=== PATIENT | male | born 1935 | race Caucasian/White ===

== ENCOUNTER 2017-02-26 11:14 | Inpatient (IN) | payer MEDICARE, OTHER ==
[~2017-02-26] VITALS: Ht 172.7 cm; Wt 76.2 kg
[2017-02-26] MEDS ORDERED: ACETAMINOPHEN EXTRA STRENGTH 500 MG TABLET ONE ×2 (11:27→11:29)
[2017-02-26] MEDS ORDERED: CEFTRIAXONE SODIUM 1 GM ONE (11:29)
[2017-02-26] MEDS ORDERED: SODIUM CHLORIDE 0.9% 1000ML 3,000 ML IV ONE (11:29)
[2017-02-26 11:53] LABS: BASOPHILS % (AUTO) 0.3 % (0.0-5.0); EOSINOPHILS % (AUTO) 0.1 % (0.0-8.0); HEMATOCRIT 35.9 % (42-54); LYMPHOCYTES % (AUTO) 7.8 % (21.0-51.0); MEAN CORPUSCULAR HEMOGLOBIN 30.2 pg (27.0-33.0); MEAN CORPUSCULAR HGB CONC 34.5 g/dL (32.0-36.0); MEAN CORPUSCULAR VOLUME 87.5 fL (79-99); MONOCYTES % (AUTO) 9.9 % (3.0-13.0); NEUTROPHILS % (AUTO) 81.9 % (40.0-77.0); PLATELET COUNT (AUTO) 257 K/uL (130-400); RED CELL DISTRIBUTION WIDTH 14.3 % (11.0-15.5); WHITE BLOOD COUNT (AUTO) 13.2 K/uL (4.8-10.8)
[2017-02-26] MEDS ORDERED: IPRATROPIUM/ALBUTEROL SULFATE 3 ML SOLUTION IH ONE (12:04)
[2017-02-26 12:47] LABS: INR 1.03 (0.85-1.15); PARTIAL THROMBOPLASTIN TIME 39.1 SEC (26.3-35.5); PROTHROMBIN TIME 10.8 SEC (9.6-11.6)
[2017-02-26 13:00] LABS: ALANINE AMINOTRANSFERASE 39 U/L (12-78); ALBUMIN 3.1 g/dL (3.5-5.0); ASPARTATE AMINOTRANSFERASE 34 U/L (10-37); BILIRUBIN,TOTAL 0.8 mg/dL (0.2-1.0); CARBON DIOXIDE 27 mmol/L (21-32); CHLORIDE 100 mmol/L (101-111); CREATINE KINASE MB < 0.5 ng/mL (0.5-3.6); CREATINE KINASE, TOTAL 166 U/L (21-232); CREATININE 1.1 mg/dL (0.5-1.5); GLOMERULAR FILTR. RATE CALC 68 mL/min (>60); GLUCOSE,RANDOM 107 mg/dL (70-105); MYOGLOBIN 108 ng/mL (10-92); SODIUM SERUM 135 mmol/L (136-145); TOTAL PROTEIN, SERUM 7.3 g/dL (6.0-8.3); TROPONIN I < 0.04 ng/mL (0.00-0.06); UREA NITROGEN, BLOOD 11 mg/dL (7-18)
[2017-02-26] MEDS ORDERED: SODIUM CHLORIDE 0.9% 1000ML 1,000 ML IV ONE (13:58)
[2017-02-26] MEDS ORDERED: LEVOFLOXACIN 500 MG/D5W 100 ML 100 ML ONE (13:59)
[2017-02-26 16:00] LABS: APPEARANCE,URINE Clear (CLEAR); BILIRUBIN,URINE Negative (NEGATIVE); COLOR,URINE Yellow (YELLOW); GLUCOSE, URINE (UA) Negative (NEGATIVE); KETONES,URINE 15 mg/dL (NEGATIVE); LEUKOCYTE ESTERASE ,URINE Negative (NEGATIVE); NITRATE,URINE Negative (NEGATIVE); OCCULT BLOOD,URINE Negative (NEGATIVE); PH,URINE 7.5 (5.0-8.0); PROTEIN,URINE Trace (NEGATIVE)
[2017-02-26 16:11] LABS: BACTERIA,URINE Rare /HPF (None Seen); RBC,URINE 0-1 /HPF (0-1); SQUAMOUS EPITHELIAL CELL,UR Rare /LPF (0-2); WBC,URINE 0-1 /HPF (0-1)
[2017-02-26] MEDS ORDERED: ACETAMINOPHEN 325 MG TAB ONE (17:33)
[2017-02-26] MEDS ORDERED: HYDRALAZINE HCL 20 MG/ML VIAL IV PRN (22:00)
[2017-02-26] MEDS ORDERED: ACETAMINOPHEN 325 MG TAB PO PRN (22:00)
[2017-02-26] MEDS ORDERED: ONDANSETRON HCL 4 MG/2 ML VIAL IV PRN (22:00)
[2017-02-26 22:22] VITALS: BP 145/70
[2017-02-26 23:00] VITALS: BP 140/67
[2017-02-27] MEDS: GUAIFENESIN-DM 200/20 MG 10 ML PO PRN ×3 (01:12→21:40)
[2017-02-27] MEDS: IPRATROPIUM/ALBUTEROL SULFATE 3 ML SOLUTION IH SCH ×6 (02:18→22:11)
[2017-02-27 03:00] VITALS: BP 133/63
[2017-02-27 06:02] LABS: HEMATOCRIT 30.3 % (42-54); MEAN CORPUSCULAR HEMOGLOBIN 30.9 pg (27.0-33.0); MEAN CORPUSCULAR HGB CONC 34.5 g/dL (32.0-36.0); MEAN CORPUSCULAR VOLUME 89.5 fL (79-99); NUCLEATED RED BLOOD CELLS 0.1 % (0.0-0.19); PLATELET COUNT (AUTO) 179 K/uL (130-400); RED BLOOD CELL COUNT(AUTO) 3.39 MIL/uL (4.50-6.20); RED CELL DISTRIBUTION WIDTH 13.6 % (11.0-15.5); WHITE BLOOD COUNT (AUTO) 7.7 K/uL (4.8-10.8)
[2017-02-27 06:10] LABS: MAGNESIUM 1.8 mg/dL (1.80-2.40); POTASSIUM 3.5 mmol/L (3.5-5.1)
[2017-02-27 07:52] VITALS: BP 135/71
[2017-02-27] MEDS: PANTOPRAZOLE SODIUM 40 MG TABLET.DR PO SCH (08:47)
[2017-02-27] MEDS: ENOXAPARIN SODIUM 40 MG/0.4 ML SYRINGE SQ SCH (08:48)
[2017-02-27 11:07] VITALS: BP 135/64
[2017-02-27 16:25] VITALS: BP 110/41
[2017-02-27 19:00] VITALS: BP 128/67
[2017-02-27] MEDS: OSELTAMIVIR PHOSPHATE 75 MG CAP PO SCH (20:55)
[2017-02-27] MEDS: LEVOFLOXACIN 500 MG/D5W 100 ML 100 ML IV SCH (20:55)
[2017-02-27 23:00] VITALS: BP 141/65
[2017-02-28] MEDS: IPRATROPIUM/ALBUTEROL SULFATE 3 ML SOLUTION IH SCH ×6 (02:03→22:10)
[2017-02-28] MEDS: SODIUM CHLORIDE 0.9% 1000ML 1,000 ML IV SCH ×3 (02:06→13:58)
[2017-02-28 03:00] VITALS: BP 139/67
[2017-02-28] MEDS: GUAIFENESIN-DM 200/20 MG 10 ML PO PRN (04:07)
[2017-02-28 07:53] VITALS: BP 138/67
[2017-02-28] MEDS: ENOXAPARIN SODIUM 40 MG/0.4 ML SYRINGE SQ SCH (09:00)
[2017-02-28] MEDS: OSELTAMIVIR PHOSPHATE 75 MG CAP PO SCH ×2 (09:47→20:37)
[2017-02-28] MEDS: PANTOPRAZOLE SODIUM 40 MG TABLET.DR PO SCH (09:47)
[2017-02-28] MEDS ORDERED: ATOR20TA PO (11:36)
[2017-02-28] MEDS ORDERED: LISI10TA7 PO (11:36)
[2017-02-28] MEDS ORDERED: VENL75TA63 PO (11:36)
[2017-02-28] MEDS ORDERED: OMEP40CA37 PO (11:36)
[2017-02-28] MEDS ORDERED: APIX5TAB PO (11:36)
[2017-02-28 11:47] VITALS: BP 132/66
[2017-02-28 16:10] VITALS: BP 128/74
[2017-02-28] MEDS ORDERED: CHOL200074 PO (17:14)
[2017-02-28] MEDS: APIXABAN 5 MG TABLET PO SCH (20:36)
[2017-02-28] MEDS: LEVOFLOXACIN 500 MG/D5W 100 ML 100 ML IV SCH (20:37)
[2017-02-28 20:39] VITALS: BP 151/73
[2017-02-28] MEDS ORDERED: ATORVASTATIN CALCIUM 10 MG TABLET PO SCH (21:00)
[2017-03-01] VITALS: BP 133/67
[2017-03-01] MEDS: IPRATROPIUM/ALBUTEROL SULFATE 3 ML SOLUTION IH SCH ×4 (01:48→14:31)
[2017-03-01 04:10] VITALS: BP 131/65
[2017-03-01] MEDS: SODIUM CHLORIDE 0.9% 1000ML 1,000 ML IV SCH (04:10)
[2017-03-01 08:00] VITALS: BP 135/63
[2017-03-01] MEDS ORDERED: PANTOPRAZOLE SODIUM 40 MG TABLET.DR PO PRN (09:00)
[2017-03-01] MEDS ORDERED: VENLAFAXINE HCL 75 MG TAB PO SCH (09:00)
[2017-03-01] MEDS: ENOXAPARIN SODIUM 40 MG/0.4 ML SYRINGE SQ SCH (09:00)
[2017-03-01] MEDS ORDERED: LISINOPRIL 10 MG TABLET PO SCH (09:00)
[2017-03-01] MEDS: OSELTAMIVIR PHOSPHATE 75 MG CAP PO SCH (09:21)
[2017-03-01] MEDS: PANTOPRAZOLE SODIUM 40 MG TABLET.DR PO SCH (09:22)
[2017-03-01] MEDS: APIXABAN 5 MG TABLET PO SCH (09:22)
[2017-03-01] MEDS: GUAIFENESIN-DM 200/20 MG 10 ML PO PRN ×2 (09:23→13:33)
[2017-03-01 11:52] VITALS: BP 143/70
[2017-03-01] MEDS ORDERED: PRED20TA3 PO (15:53)
[2017-03-01] MEDS ORDERED: LEVO500T2 PO (15:53)
[2017-03-01] MEDS ORDERED: ALBU8.5H8 IH (15:53)
[2017-03-01] MEDS ORDERED: OSEL75 PO (15:53)
[2017-03-01 15:54] VITALS: BP 132/70
== END 2017-03-01 16:55 | disposition home or self-care (01) | DRG 202 ==
LOC: EDH 11:14 → EDHIP 13:45 → 4BH 22:28
PROVIDERS: ADMIT Family Medicine; ATTEND Family Medicine
DX: J20.9 Acute bronchitis, unspecified (principal); E44.0 Moderate protein-calorie malnutrition; E86.0 Dehydration; J11.1 Influenza due to unidentified influenza virus with other respiratory manifestations; I10 Essential (primary) hypertension; I25.10 Atherosclerotic heart disease of native coronary artery without angina pectoris; Z80.42 Family history of malignant neoplasm of prostate; Z82.3 Family history of stroke; Z87.891 Personal history of nicotine dependence; Z95.5 Presence of coronary angioplasty implant and graft; Z28.21 Immunization not carried out because of patient refusal
CPT/HCPCS: 36415; 71046; 80048; 80053; 81001; 82550; 82553; 83605; 83735; 83874; 84484; 85025; 85027; 85610; 85730; 87040; 87088; 87633; 87804; 93005; 94640; 94664; J0696; J1650; J1956; J2405; J7030

== ENCOUNTER → 2017-05-07 | Outpatient (CLI) | payer OTHER ==
[~2017-05-07] MED LIST: ALBU8.5H8 IH; APIX5TAB PO; ATOR20TA PO; CHOL200074 PO; LEVO500T2 PO; LISI10TA7 PO; OMEP40CA37 PO; OSEL75 PO; PRED20TA3 PO; VENL75TA63 PO
== END | disposition home or self-care (01) ==
LOC: SHCH 11:00
PROVIDERS: ATTEND Internal Medicine Cardiovascular Disease
DX: I35.8 Other nonrheumatic aortic valve disorders (principal); I48.91 Unspecified atrial fibrillation; I25.10 Atherosclerotic heart disease of native coronary artery without angina pectoris; I10 Essential (primary) hypertension
CPT/HCPCS: 93306

== ENCOUNTER → 2017-11-07 | Outpatient (CLI) | payer OTHER ==
[~2017-11-07] VITALS: Ht 172.7 cm; Wt 77.1 kg
[~2017-11-07] MED LIST changes: +REGADENOSON 0.4 MG/5 ML PF SYG IVP SCH
== END | disposition home or self-care (01) ==
LOC: SHCH 08:28
PROVIDERS: ATTEND Internal Medicine Cardiovascular Disease
DX: I20.9 Angina pectoris, unspecified (principal); I10 Essential (primary) hypertension; Z87.891 Personal history of nicotine dependence
CPT/HCPCS: 78452; 93017; 96374; A9500 ×2; J2785